=== PATIENT | male | born 1965 | race Caucasian/White ===

== ENCOUNTER 2016-06-30 19:49 | Emergency (ER) | END 2016-06-30 20:26 | disposition left against medical advice (07) | LOC: UCCORT 19:49 | DX: M79.642 Pain in left hand (principal); Z53.21 Procedure and treatment not carried out due to patient leaving prior to being seen by health care provider ==

== ENCOUNTER 2016-08-12 17:05 | Emergency (ER) | payer BC ==
[2016-08-12 18:58] VITALS: BP 150/93
[2016-08-12] MEDS ORDERED: Tetan/Diph/Pertus SYR(Tdap)* 0.5 ML SYR(BOOSTRIX) use SYR IM ONE (19:29)
--- NOTE | 2016-08-12 19:38 | UC ---
Truncal Trauma HPI - HPI Summary HPI Summary: The patient comes in today for: 1. Injury to the right chest: Onset: 3 hours ago. Palliative/provocative: Touching the area makes it worse. Quality: No pain. Region: Right anterior chest. Severity: 0/10 Time: Constant. Associated symptoms: Event: While he was hammering something metal, a piece flew off and hit him in the right anterior chest. He and his are concerned about possible metal foreign body. The injury bleed for about 30 minutes. Tetanus: Last one is unknown. 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 - Allergies/Home Medications Allergies/Adverse Reactions: Allergies Allergy/AdvReac Type Severity Reaction Status Date / Time No Known Allergies Allergy Verified 08/12/16 18:52 Home Medications: Home Medications [id number] [Excedrin Extra Strength 250-250-65 mg] 1 tab PO BEDTIME PRN 08/12/16 [History Confirmed 08/12/16] Glucosamine Sulfate [Glucosamine] 2,000 mg PO DAILY 08/12/16 [History Confirmed 08/12/16] PMH/Surg Hx/FS Hx/Imm Hx Previously Healthy: Yes Endocrine History Of: Denies: Diabetes, Thyroid Disease, Hyperthyroidism, Hypothyroidism, Dyslipidemia Cardiovascular History Of: Denies: Cardiac Disorders, Hypertension, Pacemaker/ICD, Myocardial Infarction , Congestive Heart Failure, Atrial Fibrillation, Deep Vein Thrombosis, Bleeding Disorders Respiratory History Of: Denies: COPD, Asthma, Bronchitis, Pneumonia, Pulmonary Embolism GI/ History Of: Denies: Gastroesophageal Reflux, Ulcer, Gastrointestinal Bleed, Gall Bladder Disease, Kidney Stones, Diverticulitis, Renal Disease, Urosepsis Neurological History Of: Denies: TIA, CVA, Dementia, Seizures, Migraine Psychological History Of: Denies: Anxiety, Depression, Bipolar Disorder, Schizophrenia, Post Traumatic Stress Disorder Cancer History Of: Denies: Lung Cancer, Colorectal Cancer, Breast Cancer, Prostate Cancer, Cervical Cancer Other History Of: Negative For: HIV, Hepatitis B, Hepatitis C, Anticoagulant Therapy - Surgical History Surgical History: None - Family History Known Family History: Positive: Hypertension Negative: Cardiac Disease - Social History Occupation: Employed Full-time Alcohol Use: None Substance Use Type: None Smoking Status (MU): Never Smoked Tobacco - Immunization History Most Recent Tetanus Shot: 15 yrs ago Review of Systems Constitutional: Negative Skin: Rash Eyes: Negative ENT: Negative Respiratory: Negative Cardiovascular: Negative Gastrointestinal: Negative Genitourinary: Negative All Other Systems Reviewed And Are Negative: Yes Physical Exam Triage Information Reviewed: Yes Appearance: Well-Appearing, No Pain Distress, Well-Nourished Vital Signs: Initial Vital Signs Temp 99.2 F 08/12/16 18:53 Pulse 75 08/12/16 18:53 Resp 16 08/12/16 18:53 BP 150/93 08/12/16 18:53 Pulse Ox 96 08/12/16 18:53 Vital Signs Reviewed: Yes Eyes: Positive: Conjunctiva Clear. Negative: Discharge ENT: Positive: Hearing grossly normal. Negative: Pharyngeal erythema, Nasal congestion, Nasal drainage, TM bulging, TM dull, TM red, Tonsillar swelling, Tonsillar exudate Dental: Negative: Gross Decay/Caries @, Dental Fracture @ Neck: Positive: Supple, Nontender, No Lymphadenopathy. Negative: Nuchal Rigidity Respiratory: Positive: Lungs clear, No respiratory distress, No accessory muscle use. Negative: Rhonchi, Wheezing Cardiovascular: Positive: RRR, No Murmur Abdomen Description: Positive: Nontender, No Organomegaly, Soft. Negative: Distended, Guarding Musculoskeletal: Positive: Strength Intact, ROM Intact Neurological: Positive: Alert, Muscle Tone Normal Psychological: Positive: Age Appropriate Behavior, Consolable Skin: Positive: Other - Anterior upper chest: There is a small (5 mm) indurated area with ecchymosis. No active bleeding. Minimally tender.. Negative: rashes, breakdown Truncal Trauma Course/Dx - Course Course Of Treatment: Patient and his want to make sure he does not have any metal in the wound. CXR ordered. Positive for small metal foreign body. After a time out, and shaving of the chest, 2% lidocaine with epi was instilled in the wound area. AFter adequate anesthesia, the wound opening was expanded to allow the smallest hemostat to follow the puncture tunnel. No metal was felt. Blind attempts to remove metal were unsuccesful. Hemostasis was maintained. The area was closed with two 4-0 nylon sutures. The wound laceration extension was 5 mm. Width was 5 mm. Wound/foreign body tunnel was about 7 mm deep. - Differential Dx/Diagnosis Provider Diagnoses: Foreign metal body anterior superior right chest. Discharge - Discharge Plan Condition: Stable Disposition: HOME Patient Education Materials: Soft Tissue Foreign Body (ED) Referrals: Elier Vaca MD [Medical Doctor] - As Soon As Possible (Please contact Dr. Vaca 's office for counsultation and possible removal of foreign body in chest.) Additional Instructions: Please see your primary care provider or us in about 10-12 days to have the sutures removed.
[2016-08-12] MEDS ORDERED: Lidocaine 2% PF* 10 ML AMP INJ ONE (20:18)
[2016-08-12] MEDS ORDERED: Lidocaine 2% W/EPI 1:100,000* 20 ML MDV INJ ONE (20:21)
--- NOTE | 2016-08-12 20:26 | RAD ---
INDICATION: Foreign body 2 views of the chest demonstrates no mediastinal shift. Heart is of normal size and configuration. Radiopaque foreign body is noted in the superior subcutaneous tissue of the chest. No alveolar consolidation is identified. IMPRESSION: There is a subcutaneous foreign body just to the right of midline in the anterior chest wall the subcutaneous tissue.
[2016-08-12] MEDS ORDERED: Cephalexin CAP* 500 MG PO ONE (21:02)
== END 2016-08-12 21:17 | disposition home or self-care (01) ==
LOC: UCCORT 17:05
DX: S21.141A Puncture wound with foreign body of right front wall of thorax without penetration into thoracic cavity, initial encounter (principal); W45.8XXA Other foreign body or object entering through skin, initial encounter; W20.8XXA Other cause of strike by thrown, projected or falling object, initial encounter; Y93.89 Activity, other specified; Y92.9 Unspecified place or not applicable; Z23 Encounter for immunization; R21 Rash and other nonspecific skin eruption
CPT/HCPCS: 10120; 12031; 71020; 90471; 90715; 99212; A9270-GY; G0463; J2001

== ENCOUNTER 2018-07-15 21:38 | Emergency (ER) | payer BC ==
[2018-07-15 21:52] VITALS: BP 155/83
--- NOTE | 2018-07-15 22:06 | ED ---
Lower Extremity - HPI Summary HPI Summary: 53 yr old male with the complaint of right lower leg pain. Onset a week ago. He hit his pretibial surface on a concrete silo. He has had some pain, but it has suddenly gotten a lot worse and more swollen over the medial leg the past 24 hours. Denies thigh pain. Denies fever. Denies SOB, CP. His tetanus shot is up to date. He has pain that has worsened in the lower medial leg and into the calf. - History of Current Complaint Chief Complaint: UCLowerExtremity Stated Complaint: RT LEG INJURY Time Seen by Provider: 07/15/18 21:44 Pain Intensity: 3 - Allergies/Home Medications Allergies/Adverse Reactions: Allergies Allergy/AdvReac Type Severity Reaction Status Date / Time No Known Allergies Allergy Verified 07/15/18 21:52 PMH/Surg Hx/FS Hx/Imm Hx Endocrine/Hematology History: Denies: Hx Anticoagulant Therapy, Hx Diabetes, Hx Thyroid Disease Cardiovascular History: Denies: Hx Congestive Heart Failure, Hx Deep Vein Thrombosis, Hx Hypertension , Hx Myocardial Infarction, Hx Pacemaker/ICD Respiratory History: Denies: Hx Asthma, Hx Chronic Obstructive Pulmonary Disease (COPD), Hx Lung Cancer, Hx Pneumonia, Hx Pulmonary Embolism GI History: Denies: Hx Gall Bladder Disease, Hx Gastrointestinal Bleed, Hx Ulcer, Hx Urosepsis History: Denies: Hx Kidney Stones, Hx Renal Disease Sensory History: Denies: Hx Hearing Aid Neurological History: Denies: Hx Dementia, Hx Migraine, Hx Seizures, Hx Transient Ischemic Attacks (TIA) Psychiatric History: Denies: Hx Anxiety, Hx Depression, Hx Panic Disorder, Hx Schizophrenia, Hx Bipolar Disorder Infectious Disease History: No Infectious Disease History: Denies: Traveled Outside the [place] in Last 30 Days - Family History Known Family History: Positive: Hypertension Negative: Cardiac Disease - Social History Alcohol Use: Occasionally Substance Use Type: Reports: None Smoking Status (MU): Never Smoked Tobacco Review of Systems Constitutional: Negative Positive: Edema - right leg with erythema , pain All Other Systems Reviewed And Are Negative: Yes Physical Exam Triage Information Reviewed: Yes Vital Signs On Initial Exam: Initial Vitals Temp Pulse Resp BP Pulse Ox 97.7 F 76 18 155/83 99 07/15/18 21:41 07/15/18 21:41 07/15/18 21:41 07/15/18 21:41 07/15/18 21:41 Vital Signs Reviewed: Yes Appearance: Positive: Well-Appearing, No Pain Distress Skin: Positive: Warm Head/Face: Positive: Normal Head/Face Inspection Eyes: Positive: EOMI ENT: Positive: Normal ENT inspection Neck: Positive: Supple, Nontender Respiratory/Lung Sounds: Positive: Clear to Auscultation, Breath Sounds Present Cardiovascular: Positive: RRR, Pulses are Symmetrical in both Upper and Lower Extremities Musculoskeletal: Positive: Strength/ROM Intact, Other - tender over the right saphenous vein from above the medial malleolus to the mid calf and with erythema and edema. He has pretibial edema with abrasion as well over mid tibia. Neurological: Positive: Sensory/Motor Intact, Alert, Oriented to Person Place, Time, CN Intact II-III Psychiatric: Positive: Normal Diagnostics - Vital Signs Vital Signs Temp Pulse Resp BP Pulse Ox 07/15/18 21:41 97.7 F 76 18 155/83 99 - Laboratory Lab Statement: Any lab studies that have been ordered have been reviewed, and results considered in the medical decision making process. Lower Extremity Course/Dx - Course Course Of Treatment: 53 yr old with possible phlebitis/dvt and also cellulitis. TO ER for further eval. - Diagnoses Provider Diagnoses: Leg edema, right, Leg pain, left, Hypertension Discharge - Sign-Out/Discharge Documenting (check all that apply): Patient Departure All imaging exams completed and their final reports reviewed: No Studies - Discharge Plan Condition: Good Disposition: HOME-RECOMMEND TO ED Patient Education Materials: Leg Edema (ED), Hypertension (ED) Referrals: Paco Bledsoe DO [Primary Care Provider] - Additional Instructions: You need to go to the ER now for further evaluation. DO not delay. YOu need a study to be sure no clot in your leg. - Billing Disposition and Condition Condition: GOOD Disposition: Home-Recommend to ED
== END 2018-07-15 22:03 | disposition home health service (06) ==
LOC: UCCORT 21:38
DX: I10 Essential (primary) hypertension (principal); R60.0 Localized edema; M79.661 Pain in right lower leg
CPT/HCPCS: 99212; G0463